=== PATIENT | female | born 1995 | race Caucasian/White ===

== ENCOUNTER 2021-10-27 03:51 | Observation (INO) | payer OTHER ==
[~2021-10-27] VITALS: Ht 147.3 cm; Wt 76.5 kg
[2021-10-27 04:08] LABS: BASO % 0.2 % (0.0-2.0); EOS % 0.3 % (0.0-4.0); GRAN # 9.6 K/mm3 (1.4-6.5); HEMOGLOBIN 12.1 g/dl (12.5-16.0); LYMPH # 1.1 K/mm3 (1.2-3.4); LYMPH % 9.8 % (20.0-51.0); MEAN CELL VOLUME 91 fl (80.0-100.0); MEAN CORPUSCULAR HEMOGLOBIN 32 pg (27-31); MEAN CORPUSCULAR HGB CONC 35 g/dl (33.0-37.0); MEAN PLATELET VOLUME 9.6 fl (7.4-10.4); MONO # 0.6 K/mm3 (0.1-0.6); MONO % 5.4 % (1.7-9.3); PLATELET COUNT 245 K/mm3 (130-400); RED BLOOD COUNT 3.84 M/mm3 (4.10-5.30); REDCELL DISTRIBUTION WIDTH-CV 12.2 % (11.5-14.5)
[2021-10-27 04:28] LABS: ALBUMIN 3.6 gm/dL (3.5-5.0); BILIRUBIN,TOTAL 0.3 mg/dL (0.2-1.2); CALCIUM 8.8 mg/dL (8.4-10.2); CREATININE, serum 0.61 mg/dL (0.57-1.11); POTASSIUM 3.6 mmol/L (3.5-4.5); TOTAL PROTEIN 7.2 gm/dL (6.2-8.1)
[2021-10-27 04:32] LABS: COLLECTION METHOD CLEAN CATCH
[2021-10-27 04:56] LABS: MUCOUS Present (NOT PRESENT); PH 5 (5-8); URINE APPEARANCE Clear (CLEAR/HAZY); URINE BACTERIA Rare /hpf (NONE SEEN); URINE BILIRUBIN Negative (NEGATIVE); URINE BLOOD 2+ (NEGATIVE); URINE COLOR Yellow (YELLOW); URINE GLUCOSE Negative (NEGATIVE); URINE KETONE Negative (NEGATIVE); URINE LEUKOCYTE ESTERASE Negative (NEGATIVE); URINE NITRATE Negative (NEGATIVE); URINE PROTEIN(semi-quant) Negative (NEGATIVE); URINE UROBILINOGEN Negative (NEGATIVE)
--- NOTE | 2021-10-27 05:40 | NUR ---
ADMITTED TO ROOM 342 PER WC. A&O RLQ PAIN LEVEL 10/20. NOO NAUSEA. CALL LIGHT IN REACH. ORIENTED TO ROOM.
[2021-10-27] MEDS ORDERED: PRENATAL MVI PO (05:43)
[2021-10-27 05:53] VITALS: BP 112/68; PULSE 76; TEMP 98.5
--- NOTE | 2021-10-27 07:40 | NUR ---
Patient layin in bed, A&Ox4. at the bedside. VSS. IV CDI, fluids infusing. Reports discomfort in RLQ, no pain medication requested. NPO for possible procedure. Call light within reach
[2021-10-27 07:43] VITALS: BP 103/56; PULSE 72; TEMP 98.9
[2021-10-27 11:26] VITALS: BP 104/58; PULSE 82; TEMP 98.7
--- NOTE | 2021-10-27 11:28 | NUR ---
SW met with patient to complete intake. Patient states that she lives in [facility] with her Steve [phone]. Patient states that she does not utilize DME and is independent with ADLs. PCP is Dr. Garnica and pharmacy is [facility]. Patient does not have anyone appointed as DPOA/HC. Patient's plan is to return to her home up on DC. SW will continue to follow. DC plan: home
[2021-10-27 15:00] VITALS: BP 98/51; PULSE 91; TEMP 98.7
--- NOTE | 2021-10-27 17:59 | NUR ---
Patient resting in bed, has been at the bedside. A&Ox4. VSS. IV CDI, fluids infusing. Denies pain and discomfort. Call light within reach
--- NOTE | 2021-10-27 21:00 | NUR ---
PATIENT IS RESTING IN BED. IS IN THE ROOM WITH THE PATIENT.PATIENT MEDS ADMINISTERED.PATIENT WAS REQUESTING TO HAVE THE STAY OVERNIGHT.PATIENT WAS EXPLAINED ABOUT THE POLICY.CHARGE NURSE WAS INFORMED WHO TALKED WITH THE THEM ABOUT THE SAME.PATIENT WAS GIVEN TYLENOL FOR PAIN.PATIENT IS INDEPENDENT IN THE ROOM.NO OTHER NEEDS AT THIS TIME.
[2021-10-27 21:24] VITALS: BP 109/62; PULSE 89; TEMP 98.3
[2021-10-28 00:46] VITALS: BP 98/56; PULSE 80; TEMP 98.3
[2021-10-28 03:54] VITALS: BP 105/60; PULSE 78; TEMP 98.2
--- NOTE | 2021-10-28 05:17 | NUR ---
PATIENT HAD A CALM NIGHT.PATIENT RATE ABD PAIN AT 4.PATIENT IS ON IV RL ON GOOD PROGRESS.NO OTHER NEEDS AT THIS TIME.
[2021-10-28 05:54] LABS: BASO % 0.4 % (0.0-2.0); EOS # 0.1 K/mm3 (0.0-0.7); EOS % 0.9 % (0.0-4.0); GRAN # 3.9 K/mm3 (1.4-6.5); GRAN % 68.6 % (42.2-75.2); LYMPH # 1.3 K/mm3 (1.2-3.4); LYMPH % 22.3 % (20.0-51.0); MEAN CELL VOLUME 94 fl (80.0-100.0); MEAN CORPUSCULAR HGB CONC 34 g/dl (33.0-37.0); MEAN PLATELET VOLUME 9.9 fl (7.4-10.4); MONO # 0.4 K/mm3 (0.1-0.6); MONO % 7.4 % (1.7-9.3); PLATELET COUNT 217 K/mm3 (130-400); RED BLOOD COUNT 3.17 M/mm3 (4.10-5.30); REDCELL DISTRIBUTION WIDTH-CV 12.3 % (11.5-14.5)
[2021-10-28 06:10] LABS: HEMATOCRIT 29.7 % (37.0-47.0); MEAN CORPUSCULAR HEMOGLOBIN 32 pg (27-31)
--- NOTE | 2021-10-28 06:35 | NUR ---
awake resting in bed, bedside shift report received from Maisha RN, Dr Hernandez in to see patient
[2021-10-28 07:24] VITALS: BP 105/55; PULSE 78; TEMP 97.8
--- NOTE | 2021-10-28 07:30 | NUR ---
IV to INT, full assessment completed, see interventions for further info, has been informed on how to order breakfast, denies needs at this time
--- NOTE | 2021-10-28 08:40 | NUR ---
up in chair having some fruit, at bedside
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
--- NOTE | 2021-10-28 10:30 | NUR ---
remains resting in chair without c/os
[2021-10-28 11:40] VITALS: BP 100/54; PULSE 75; TEMP 98.6
--- NOTE | 2021-10-28 12:10 | NUR ---
remains up in chair without needs
--- NOTE | 2021-10-28 14:13 | NUR ---
cheerful remains up in chair just wanting to go home
[2021-10-28] MEDS ORDERED: AMOXICILLIN 8751 TAB PO (15:16)
--- NOTE | 2021-10-28 15:50 | NUR ---
discharge instructions given to patient and her , verbalizes understanding
--- NOTE | 2021-10-28 15:55 | NUR ---
discharged ambulatory
== END 2021-10-28 15:55 | disposition home or self-care (01) ==
LOC: COL.ER 03:51 → SURG 05:12
PROVIDERS: Emergency Medicine; ADMIT Surgery
DX: O99.612 Diseases of the digestive system complicating pregnancy, second trimester (principal); K35.80 Unspecified acute appendicitis; Z3A.16 16 weeks gestation of pregnancy
CPT/HCPCS: G0378; J0295; J2543; J7120

== ENCOUNTER 2022-01-06 19:32 | Outpatient (CLI) | payer OTHER ==
[~2022-01-06] VITALS: Ht 172.7 cm; Wt 85.0 kg
[~2022-01-06 19:32] MED LIST: AMOXICILLIN 8751 TAB PO; PRENATAL MVI PO
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
[2022-01-06 20:00] VITALS: BP 121/79; PULSE 75; TEMP 98.4
[2022-01-06] MEDS ORDERED: FERROUS SU325 MG/TAB PO (20:38)
--- NOTE | 2022-01-06 20:50 | NUR ---
Pt denies feeling contractions and has felt movement. Reviewed discharge instructions, verbalized understanding. Pt seen ambulating off unit with spouse.
== END 2022-01-06 20:51 | disposition home or self-care (01) ==
LOC: LDRO 19:32 → LDR 20:29 → LDRO 20:51
DX: Z34.92 Encounter for supervision of normal pregnancy, unspecified, second trimester (principal); Z3A.26 26 weeks gestation of pregnancy
CPT/HCPCS: OP